=== PATIENT | female | born 1985 | race Caucasian/White ===

== ENCOUNTER 2018-02-02 00:53 | Emergency (ER) | payer OTHER ==
[~2018-02-02] VITALS: Ht 162.6 cm; Wt 96.2 kg
[~2018-02-02 00:53] MED LIST: CILOXAN 0.100 DROP/5 RIGHT EYE; LANTUS100 UNIT/1 SQ; LORTAB 5-325 M1 EACH PO; NOVOLOG100 UNIT/2 SQ; SYNTHROID300 MCG PO; ULTRAM50 MG PO
[2018-02-02] MEDS ORDERED: KEFLEX500 MG PO (01:35)
[2018-02-02 02:00] VITALS: BP 143/92
== END 2018-02-02 02:02 | disposition home or self-care (01) ==
LOC: EME 00:53
DX: L03.116 Cellulitis of left lower limb (principal); E10.9 Type 1 diabetes mellitus without complications; E03.9 Hypothyroidism, unspecified; Z79.4 Long term (current) use of insulin; F17.200 Nicotine dependence, unspecified, uncomplicated
CPT/HCPCS: 99281; 99283

== ENCOUNTER 2018-02-11 13:50 | Emergency (ER) | payer OTHER ==
[~2018-02-11] VITALS: Ht 162.6 cm; Wt 95.6 kg
[~2018-02-11 13:50] MED LIST changes: +KEFLEX500 MG PO
[2018-02-11 15:11] LABS: APPEARANCE SL.HAZY ((CLEAR)); BILIRUBIN NEGATIVE; BLOOD NEGATIVE; COLOR YELLOW ((YELLOW)); GLUCOSE (STRIP) NEGATIVE; KETONES 20; LEUKOCYTES NEGATIVE; NITRITE NEGATIVE; PROTEIN (STRIP) 100; SPECIFIC GRAVITY 1.021 (1.000-1.030)
[2018-02-11 15:25] LABS: BACTERIA RARE /HPF; CALCIUM OXALATE CRYSTALS 1+ /HPF; EPITHELIAL CELLS RARE /HPF; MUCUS TRACE /LPF; UCUL ADDED? NO; WHITE BLOOD CELLS 0-5 /HPF (0-5)
[2018-02-11 15:47] LABS: HEMATOCRIT 39.8 % (36.0-46.0); HEMOGLOBIN 13.4 G/DL (11.9-15.5); MCH 29.6 PG (29.0-34.0); MCHC 33.7 G/DL (30.0-36.0); MCV 87.9 FL (83-99); PLATELET COUNT 299 K/uL (156-360); RBC DIS.WIDTH-CV 11.9 % (11.8-14.6); RBC DIS.WIDTH-SD 38.5 % (39-53); RED BLOOD COUNT 4.53 M/uL (3.80-5.20); WHITE BLOOD COUNT 6.5 K/uL (4.1-10.2)
[2018-02-11 16:00] LABS: ALBUMIN 3.8 g/dL (3.2-4.8); CHLORIDE 105 mEq/L (99-109); POTASSIUM 4.2 mEq/L (3.7-5.4); SODIUM 137 mEq/L (136-147)
[2018-02-11 16:02] LABS: GLUCOSE 135 mg/dL (70-99); TOTAL PROTEIN 7.4 g/dL (6.4-8.3)
[2018-02-11 16:04] LABS: TOTAL BILIRUBIN 0.2 mg/dL (0.0-1.0)
[2018-02-11 16:06] LABS: ALKALINE PHOSPHATASE 133 IU/L (3-129); CREATININE 0.8 mg/dL (0.6-1.3); GFR ESTIMATE (CALCULATED) > 59 mL/min/
[2018-02-11 16:07] LABS: UREA NITROGEN (BUN) 11 mg/dL (9-23)
[2018-02-11 16:08] LABS: AST (GOT) 18 IU/L (2-34)
[2018-02-11 16:09] LABS: ALT (GPT) 18 IU/L (3-49)
[2018-02-11 16:16] LABS: QUANTITATIVE HCG < 4.0 MIU/ML
[2018-02-11] MEDS ORDERED: CARAFATE1 GM PO (16:58)
[2018-02-11] MEDS ORDERED: ZOFRAN ODT8 MG PO (16:58)
[2018-02-11] MEDS ORDERED: PEPCID20 MG PO (16:58)
[2018-02-11 17:13] VITALS: BP 121/66
== END 2018-02-11 17:14 | disposition home or self-care (01) ==
LOC: EME 13:50
DX: R11.2 Nausea with vomiting, unspecified (principal); E03.9 Hypothyroidism, unspecified; E10.9 Type 1 diabetes mellitus without complications; Z79.4 Long term (current) use of insulin; F17.200 Nicotine dependence, unspecified, uncomplicated
CPT/HCPCS: 80053; 81003; 84702; 85027; 99281; 99285